=== PATIENT | female | born 1975 | race Caucasian/White ===

== ENCOUNTER → 2016-09-24 | Outpatient (CLI) | payer OTHER ==
--- NOTE | 2016-09-24 12:53 | DIAGNOSTIC IMAGING REPORT ---
PROCEDURE: MG BILATERAL SCREENING W/CAD INDICATION: Screening. Family history breast carcinoma (great aunt). TECHNIQUE: Bilateral CC and MLO digital views. COMPARISON: Compared to [facility] 10/12/2011. FINDINGS: Computer-aided detection applied. Moderately dense. No change. IMPRESSION: 1. Negative mammogram RESULT CODE: 1- Negative. A. A negative report should not delay biopsy if a dominant or clinically suspicious mass is present. 10-15% of cancers are not identified by x-ray. B. A negative report may reinforce clinical impression. C. Adenosis and dense breasts may obscure an underlying neoplasm. D. False positive reports average 6-10%. E.. A yearly screening mammogram is recommended. A reminder letter will be scheduled.
== END ==
LOC: MAM SRH 08:50
DX: Z12.31 Encounter for screening mammogram for malignant neoplasm of breast (principal)

== ENCOUNTER 2017-01-30 09:02 | Emergency (ER) | payer OTHER ==
--- NOTE | 2017-01-30 11:35 | ED CLINICAL REPORT ---
Clinical Report - Physicians/Mid Levels [facility] [address] [place] [address] 01/30/2017 9:04 Patient: MARCUS MANRIQUE Time Seen: 09:30. Arrived- By private vehicle. Historian- patient. HISTORY OF PRESENT ILLNESS Chief Complaint: VOMITING. This started today and is still present. It was abrupt in onset and has been intermittent. The patient has had nausea and vomiting. No black stools, bloody stools, abdominal pain, history of possible bad food exposure or known contact with a sick individual. Has not recently been camping or on antibiotics. The illness is described as severe. Similar symptoms previously: Several times. Diagnosis: (migraine headaches). REVIEW OF SYSTEMS Last normal menstrual period was 4 weeks ago. No chills, fever, sweats, calf pain or chest pain. No cough, difficulty breathing, pedal edema, black stools or bloody stools. No urinary problems. The patient has had a severe headache (- gone now). The headache has been similar to previous ones. The patient has a history of migraine headaches. All systems otherwise negative, except as recorded above. PAST HISTORY PCP - Isaura Jovel. SOCIAL HISTORY Current every day heavy tobacco smoker (cigarette)- 1 pack per day. Occasional alcohol use. History of occasional drug use: marijuana. FAMILY HISTORY Denies family medical history. ADDITIONAL NOTES The nursing notes have been reviewed. PHYSICAL EXAM Vital Signs: 01/30/2017 09:20 BP: 147/78. HR: 70. RR: 16. O2 saturation: 96%. Temp: 97.7 F. Pain level now: 4/10. Have been reviewed. Appearance: Alert. Eyes: Pupils equal, round and reactive to light. ENT: Pharynx normal. Neck: Normal inspection. Neck supple. CVS: Normal heart rate and rhythm. Heart sounds normal. Respiratory: No respiratory distress. Breath sounds normal. Abdomen: Soft and nontender. Bowel sounds normal. No organomegaly. No mass. Obese. Back: Normal inspection. Skin: Skin warm and dry. Normal skin color. Normal skin turgor. Extremities: Extremities exhibit normal ROM. No calf tenderness. No lower extremity edema. LABS, X-RAYS, AND EKG Laboratory Tests: UA-Culture if indicated: (NANDO: 01/30/2017 10:10) ( [facility] 01/30/2017 10:35) Final results Test Result Flag Units (Reference) URINE COLOR YELLOW URINE APPEARANCE CLEAR URINE GLUCOSE NEGATIVE (NEGATIVE) URINE BILIRUBIN NEGATIVE (NEGATIVE) URINE KETONE NEGATIVE (NEGATIVE) URINE SPECIFIC GRAVITY 1.025 (1.010-1.030) URINE PH 5.5 (5.0-8.0) URINE PROTEIN NEGATIVE (NEGATIVE) URINE UROBILINOGEN 0.2 EU/dL (0.2-1.0) URINE NITRITE NEGATIVE (NEGATIVE) URINE BLOOD 1+ (NEGATIVE) URINE LEUK ESTERASE NEGATIVE (NEGATIVE) URINE RBC 3-5 rbc/hpf (0-1) URINE WBC 3-5 wbc/hpf (0-1) URINE EPITHELIAL CELLS 1-3 EPI/hpf (0-5) URINE BACTERIA MODERATE (2+ TO 3+) (NONE SEEN) URINE COMMENT CULTURE INDICATED URINE CULTURES ARE SET-UP BASED ON THE FOLLOWING CRITERIA:POSITIVE NITRITEPOSITIVE LEUKOCYTE ESTERASEGREATER THAN 10 WHITE BLOOD CELLSMODERATE (2+) OR GREATER BACTERIA Urine: (NANDO: 01/30/2017 10:10) ( [facility] 01/30/2017 10:23) Final results Test Result Flag Units (Reference) URINE NEGATIVE CBC w Diff: (NANDO: 01/30/2017 09:56) ( [facility] 01/30/2017 10:11) Final results Test Result Flag Units (Reference) WHITE BLOOD COUNT 8.4 K/uL (4.5-11.5) RED BLOOD COUNT 4.62 M/uL (4.00-5.20) HEMOGLOBIN 14.4 gm/dL (12.0-16.0) HEMATOCRIT 42.4 % (36.0-46.0) MEAN CELL VOLUME 92 fL (80-100) MEAN CORPUSCULAR HGB 31 pg (26-34) MEAN CORPUSCULAR HGB CONC 34 g/dL (31-37) RED CELL DISTRIBUTION WIDTH 13.0 % (11.6-14.8) PLATELET COUNT 278 K/uL (150-400) NEUTROPHIL % 70.3 % (50-75) LYMPH % 22.2 L % (25-40) MONO % 6.3 % (3-14) EOSINOPHIL % 0.9 % (0-4) BASOPHIL % 0.3 % (0-2) CMP: (NANDO: 01/30/2017 09:56) ( MsgRcvd 01/30/2017 10:26) Final results Test Result Flag Units (Reference) GLUCOSE 107 mg/dL (70-110) BUN 13 mg/dL (7-18) CREATININE 0.7 mg/dL (0.6-1.3) Estimated GFR >60 mL/min Estimated GFR- >60 mL/min Note: Persistent reduction over 3 months in eGFR<60 mL/min/1.73 m2 defines CKD. Patients with eGFR values>=60 mL/min/1.73 m2 may also have CKD if evidence ofpersistent proteinuria. Additional information may be foundat www.kidney.org. SODIUM 142 mmol/L (136-145) POTASSIUM 3.9 mmol/L (3.5-5.1) CHLORIDE 106 mmol/L (98-107) CARBON DIOXIDE 27 mmol/L (21-32) CALCIUM 8.2 L mg/dL (8.5-10.1) mg/dL TOTAL PROTEIN 6.3 L g/dL (6.4-8.2) ALBUMIN 3.4 g/dL (3.3-5.0) BILIRUBIN, TOTAL 0.4 mg/dL (0.0-1.0) ALKALINE PHOSPHATASE 57 U/L (46-116) AST (SGOT) 14 L U/L (15-37) ALT (SGPT) 27 U/L (12-78) LIPASE 117 U/L (73-393) AMYLASE 29 U/L (25-115) . CLINICAL IMPRESSION Vomiting. Acute migraine headache. INSTRUCTIONS Rest. Do not work today. Drink plenty of fluids. Warnings: Further evaluation is necessary. Prescription Medications: Zofran 4 mg: Take 1 orally every six hours as needed for nausea/vomiting. Dispense ten (10). No refills. Substitution is permissible. Follow-up: Follow up with your doctor Wednesday in two days. Call for the next available appointment. Understanding of the discharge instructions verbalized by patient. (Electronically signed by Jigar Cheney MD 01/30/2017 11:48)
--- NOTE | 2017-01-30 11:35 | ED NURSING NOTES ---
Clinical Report - Nurses [facility] [address] [place] [address] 01/30/2017 9:04 Patient: MARCUS MANRIQUE TRIAGE Triage time 09:Jan 30 2017. Acuity: LEVEL 4. Chief Complaint: HEADACHE and VOMITING. Alert. No acute distress. --09:28 Te Holden R.N. 09:20 01/30/17. BP: 147/78. HR: 70. RR: 16. O2 saturation: 96% on room air. Temp: 97.7 F. Pain level now: 10/26. --09:28 Te Holden R.N. Acuity: LEVEL 3. --10:45 Wendy Resendiz R.N. Weight: 122.4 kg stated. Height/Length: 65 inches Per Patient. BMI: 45. --09:20 Te Holden R.N. Medications Lisinopril-Hydrochlorothiazide Oral. --09:22 Te Holden R.N. Antidepressant. --09:22 Te Holden R.N. Ibuprofen. --09:22 Te Holden R.N. Water Pill. --09:22 Te Holden R.N. INHALER . --09:28 Te Holden R.N. Allergies No Known Drug Allergy. --09:21 Te Holden R.N. History This started today. She has had nausea and vomiting. 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 PAST MEDICAL HX: Immunizations: up-to-date. SOCIAL HX: Heavy tobacco smoker- 1 pack per day. Occasional alcohol use. History of drug use: marijuana. (last use last night). No recent travel. No infectious disease exposure. No known contact with a sick individual. ABUSE ASSESSMENT: No report of abuse. SELF HARM ASSESSMENT: A self harm assessment was performed. The patient answered "no" to the question "Do you have thoughts of harming or killing yourself?". FALL RISK ASSESSMENT: Fall risk assessment completed. No fall risk identified. NUTRITIONAL RISK ASSESSMENT: The nutritional risk assessment revealed no deficiencies. FUNCTIONAL ASSESSMENT: Functional assessment: no impairments noted. LEARNING NEEDS ASSESSMENT: The learning needs assessment revealed no barriers. SKIN INTEGRITY ASSESSMENT: Skin integrity risk assessment completed. No skin integrity risk identified. --09:28 Te Holden R.N. ( Pt reports she awoke this AM with an intense headache and vomiting that persisted until she "threw everything up". Pt has had migraine headaches before and she states her symptoms today feel similar to migraines she has had before.). --09:35 Te Holden R.N. PROBLEMS: Sinusitis. Pharyngitis. Hypertension. Depression. --09:22 Te Holden R.N. Asthma. --09:28 Te Holden R.N. ADDITIONAL SURGERIES: Tubal Ligation. --09:23 Te Holden R.N. Interventions ID band on patient. To treatment room. --09:28 Te Holden R.N. PHYSICAL ASSESSMENT Ambulatory to room. GENERAL / NEURO / PSYCH: Alert. Oriented X 4. Appears in distress. Speech within normal limits. HEENT: Photophobia present. RESPIRATORY: Respirations not labored. Wheezes and rhonchi right mid-lung anteriorly and upper lung anteriorly; wheezes left mid-lung anteriorly and upper lung anteriorly. GI / : Abdomen soft and nontender. SKIN: Skin is warm and dry. --09:30 Te Holden R.N. NURSING PROGRESS NOTES The plan of care for this patient has been created. Patient gowned. Head of bed elevated. Reassurance given. Lights dimmed. Two patient identifiers checked. Call light placed in reach. Side rails up x 2. Bed placed in lowest position. Brakes of chair on. Patient ready for evaluation- chart flagged. --09:31 Te Holden R.N. 09:59 01/30/2017 Site #1 started via IV in the left antecubital space with an 20g angiocath, with aseptic technique and good blood return; one attempt. Blood drawn: rainbow set. Labeled in the presence of the patient and sent to the lab. Saline lock flushed with 10 mL saline. --09:59 Te Holden R.N. 10:02 01/30/2017 Zofran (Ondansetron HCl) IVP 4 mg given over 2 minute(s) via site #1. Allergies verified and confirmed 5 rights. IV patency established. IV site checked: no pain, redness, or swelling. IV flushed thoroughly pre- and post-medication administration. IVP given by RN. --10:02 Te Holden R.N. 10:14 01/30/2017 Started bag #1 1000 mL IV Fluids IV NS (Saline); bolus of 500 mL over 1 hour(s) via site #1 via IV pump. Allergies verified and confirmed 5 rights. IV patency established. IV site checked: no pain, redness, or swelling. IV flushed thoroughly pre- and post-medication administration. Completed per protocol. --10:14 Te Holden R.N. Patient ID band checked for patient name and birthdate: patient confirmed. Instructions provided to collect clean catch urine and patient verbalized understanding. Catheterized urine collected with return of yellow-colored urine; sample sent to lab. Specimen labeled in the presence of the patient. ( Pt resting in room, asked for a drink of water but explained that Pt will need to be NPO for now until we can minimize her nausea/vomiting. Pt not actively vomiting, S/O at bedside, states she is feeling better. Monitoring VS.). --10:18 Te Holden R.N. <<STRICKEN ENTRY-- 10:51 01/30/2017 IV Fluids IV NS via IV site #1 Rate Changed: bag #1 increased to 1000 mL/hr. IV patency established. IV site checked: no pain, redness, or swelling. IV flushed thoroughly. Confirmed 5 Rights. --10:51 Te Holden R.N. --END STRIKE>> Change to Details. --10:59 Te Holden R.N. 10:50 01/30/17. BP: 120/50. HR: 59. RR: 18. O2 saturation: 98% on room air. --10:52 Te Holden R.N. 10:55 01/30/17. Pain level now: 0/10. --10:55 Te Holden R.N. ( Pt resting in room, S/O at bedside, Pt states she is feeling much better, reported that MD has been in to see her and discuss findings. [place] was provided to Pt, IVF infusing, no needs voiced.). --10:55 Te Holden R.N. 10:51 01/30/2017 IV Fluids IV NS via IV site #1 Rate Changed: bag #1 increased to 1000 mL/hr. IV patency established. IV site checked: no pain, redness, or swelling. IV flushed thoroughly. Confirmed 5 Rights (Per V.O from MD at Pt's bedside.). --10:59 Te Holden R.N. 11:02 01/30/2017 Zofran IVP Response: no adverse reaction symptoms have improved. --11:02 Te Holden R.N. 11:28 01/30/2017 IV Fluids IV NS Discontinued: bag #1 infused upon discharge. Total amount infused: 1000 mL. IV patency established. IV site checked: no pain, redness, or swelling. IV flushed thoroughly. --11:33 Te Holden R.N. 11:29 01/30/2017 Site #1 removed upon discharge. Bandaid applied. --11:34 Te Holden R.N. DISPOSITION / DISCHARGE 11:24 01/30/17. BP: 117/64 taken on the right arm, while lying. HR: 60. RR: 18. O2 saturation: 98% on room air. Temp: 97.7 F (oral). Pain level now: 0/10. --11:25 Te Holden R.N. Departure time: 11:30 Jan 30 2017. Condition at departure: improved and stable. No learning barriers present. Discharge instructions provided and reviewed with the patient and spouse. Reviewed medication(s) side effects, precautions, dosing and course information. Prescription(s) given to the runstitching machine operator (Zofran Rx). Reviewed referral to a primary care physician for followup (Pt instructed to call for an appointment in 2 days). Activity restrictions (rest) reviewed (Pt instructed not to work today.). Work note given. Patient and runstitching machine operator verbalized understanding. Written instructions provided in Danish. The patient was discharged home and accompanied by runstitching machine operator. She left the Emergency Department ambulatory and via private vehicle. Landscape Technician driving. ( Pt dc'd in stable condition, ambulatory, VSS, reports she is feeling better.). --11:33 Te Holden R.N. 11:32 01/30/17. Pain level now: 0/10. --11:33 Te Holden R.N. Locked/Released at 01/30/2017 11:36 by Te Holden R.N.
--- NOTE | 2017-01-30 11:35 | ED NURSING NOTES ---
Clinical Report - Nurses [facility] [address] [place] [address] 01/30/2017 9:04 Patient: MARCUS MANRIQUE TRIAGE Triage time 09:Jan 30 2017. Acuity: LEVEL 4. Chief Complaint: HEADACHE and VOMITING. Alert. No acute distress. --09:28 Te Holden R.N. 09:20 01/30/17. BP: 147/78. HR: 70. RR: 16. O2 saturation: 96% on room air. Temp: 97.7 F. Pain level now: 10/26. --09:28 Te Holden R.N. Acuity: LEVEL 3. --10:45 Wendy Resendiz R.N. Weight: 122.4 kg stated. Height/Length: 65 inches Per Patient. BMI: 45. --09:20 Te Holden R.N. Medications Lisinopril-Hydrochlorothiazide Oral. --09:22 Te Holden R.N. Antidepressant. --09:22 Te Holden R.N. Ibuprofen. --09:22 Te Holden R.N. Water Pill. --09:22 Te Holden R.N. INHALER . --09:28 Te Holden R.N. Allergies No Known Drug Allergy. --09:21 Te Holden R.N. History This started today. She has had nausea and vomiting. 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 PAST MEDICAL HX: Immunizations: up-to-date. SOCIAL HX: Heavy tobacco smoker- 1 pack per day. Occasional alcohol use. History of drug use: marijuana. (last use last night). No recent travel. No infectious disease exposure. No known contact with a sick individual. ABUSE ASSESSMENT: No report of abuse. SELF HARM ASSESSMENT: A self harm assessment was performed. The patient answered "no" to the question "Do you have thoughts of harming or killing yourself?". FALL RISK ASSESSMENT: Fall risk assessment completed. No fall risk identified. NUTRITIONAL RISK ASSESSMENT: The nutritional risk assessment revealed no deficiencies. FUNCTIONAL ASSESSMENT: Functional assessment: no impairments noted. LEARNING NEEDS ASSESSMENT: The learning needs assessment revealed no barriers. SKIN INTEGRITY ASSESSMENT: Skin integrity risk assessment completed. No skin integrity risk identified. --09:28 Te Holden R.N. ( Pt reports she awoke this AM with an intense headache and vomiting that persisted until she "threw everything up". Pt has had migraine headaches before and she states her symptoms today feel similar to migraines she has had before.). --09:35 Te Holden R.N. PROBLEMS: Sinusitis. Pharyngitis. Hypertension. Depression. --09:22 Te Holden R.N. Asthma. --09:28 Te Holden R.N. ADDITIONAL SURGERIES: Tubal Ligation. --09:23 Te Holden R.N. Interventions ID band on patient. To treatment room. --09:28 Te Holden R.N. PHYSICAL ASSESSMENT Ambulatory to room. GENERAL / NEURO / PSYCH: Alert. Oriented X 4. Appears in distress. Speech within normal limits. HEENT: Photophobia present. RESPIRATORY: Respirations not labored. Wheezes and rhonchi right mid-lung anteriorly and upper lung anteriorly; wheezes left mid-lung anteriorly and upper lung anteriorly. GI / : Abdomen soft and nontender. SKIN: Skin is warm and dry. --09:30 Te Holden R.N. NURSING PROGRESS NOTES The plan of care for this patient has been created. Patient gowned. Head of bed elevated. Reassurance given. Lights dimmed. Two patient identifiers checked. Call light placed in reach. Side rails up x 2. Bed placed in lowest position. Brakes of chair on. Patient ready for evaluation- chart flagged. --09:31 Te Holden R.N. 09:59 01/30/2017 Site #1 started via IV in the left antecubital space with an 20g angiocath, with aseptic technique and good blood return; one attempt. Blood drawn: rainbow set. Labeled in the presence of the patient and sent to the lab. Saline lock flushed with 10 mL saline. --09:59 Te Holden R.N. 10:02 01/30/2017 Zofran (Ondansetron HCl) IVP 4 mg given over 2 minute(s) via site #1. Allergies verified and confirmed 5 rights. IV patency established. IV site checked: no pain, redness, or swelling. IV flushed thoroughly pre- and post-medication administration. IVP given by RN. --10:02 Te Holden R.N. 10:14 01/30/2017 Started bag #1 1000 mL IV Fluids IV NS (Saline); bolus of 500 mL over 1 hour(s) via site #1 via IV pump. Allergies verified and confirmed 5 rights. IV patency established. IV site checked: no pain, redness, or swelling. IV flushed thoroughly pre- and post-medication administration. Completed per protocol. --10:14 Te Holden R.N. Patient ID band checked for patient name and birthdate: patient confirmed. Instructions provided to collect clean catch urine and patient verbalized understanding. Catheterized urine collected with return of yellow-colored urine; sample sent to lab. Specimen labeled in the presence of the patient. ( Pt resting in room, asked for a drink of water but explained that Pt will need to be NPO for now until we can minimize her nausea/vomiting. Pt not actively vomiting, S/O at bedside, states she is feeling better. Monitoring VS.). --10:18 Te Holden R.N. <<STRICKEN ENTRY-- 10:51 01/30/2017 IV Fluids IV NS via IV site #1 Rate Changed: bag #1 increased to 1000 mL/hr. IV patency established. IV site checked: no pain, redness, or swelling. IV flushed thoroughly. Confirmed 5 Rights. --10:51 Te Holden R.N. --END STRIKE>> Change to Details. --10:59 Te Holden R.N. 10:50 01/30/17. BP: 120/50. HR: 59. RR: 18. O2 saturation: 98% on room air. --10:52 Te Holden R.N. 10:55 01/30/17. Pain level now: 0/10. --10:55 Te Holden R.N. ( Pt resting in room, S/O at bedside, Pt states she is feeling much better, reported that MD has been in to see her and discuss findings. [place] was provided to Pt, IVF infusing, no needs voiced.). --10:55 Te Holden R.N. 10:51 01/30/2017 IV Fluids IV NS via IV site #1 Rate Changed: bag #1 increased to 1000 mL/hr. IV patency established. IV site checked: no pain, redness, or swelling. IV flushed thoroughly. Confirmed 5 Rights (Per V.O from MD at Pt's bedside.). --10:59 Te Holden R.N. 11:02 01/30/2017 Zofran IVP Response: no adverse reaction symptoms have improved. --11:02 Te Holden R.N. 11:28 01/30/2017 IV Fluids IV NS Discontinued: bag #1 infused upon discharge. Total amount infused: 1000 mL. IV patency established. IV site checked: no pain, redness, or swelling. IV flushed thoroughly. --11:33 Te Holden R.N. 11:29 01/30/2017 Site #1 removed upon discharge. Bandaid applied. --11:34 Te Holden R.N. DISPOSITION / DISCHARGE 11:24 01/30/17. BP: 117/64 taken on the right arm, while lying. HR: 60. RR: 18. O2 saturation: 98% on room air. Temp: 97.7 F (oral). Pain level now: 0/10. --11:25 Te Holden R.N. Departure time: 11:30 Jan 30 2017. Condition at departure: improved and stable. No learning barriers present. Discharge instructions provided and reviewed with the patient and spouse. Reviewed medication(s) side effects, precautions, dosing and course information. Prescription(s) given to the truck packer (Zofran Rx). Reviewed referral to a primary care physician for followup (Pt instructed to call for an appointment in 2 days). Activity restrictions (rest) reviewed (Pt instructed not to work today.). Work note given. Patient and truck packer verbalized understanding. Written instructions provided in French. The patient was discharged home and accompanied by truck packer. She left the Emergency Department ambulatory and via private vehicle. Steam Meter Reader driving. ( Pt dc'd in stable condition, ambulatory, VSS, reports she is feeling better.). --11:33 Te Holden R.N. 11:32 01/30/17. Pain level now: 0/10. --11:33 Te Holden R.N. Locked/Released at 01/30/2017 11:36 by Te Holden R.N.
--- NOTE | 2017-01-30 11:35 | ED ORDER SUMMARY ---
..... Patient: MARCUS MANRIQUE OrderSheet [facility] VisitID: [id number] [place] [address] 41y, F Registration Date/Time: 01/30/2017 ORDER SHEET Weight: 122.4 kg (stated) Allergies: No Known Drug Allergy GENERAL ORDERS: CBC w Diff Urgent (09:01/30/2017 Julius HERNANDES) (Ack 9:43 NICOLETTEoejosé) (9:58 MCook R.N.) CMP Urgent (:01/30/2017 Julius HERNANDES) (Ack 9:43 NICOLETTEoerner) (9:58 MCook R.N.) UA-Culture if indicated Urgent (:01/30/2017 Julius HERNANDES) (Ack 9:43 NICOLETTEoejosé) (10:13 MCook R.N.) Amylase Urgent (:01/30/2017 Julius HERNANDES) (Ack 9:43 Atul) (9:58 MCook R.N.) Lipase Urgent (09:01/30/2017 Julius HERNANDES) (Ack 9:43 NICOLETTEoetitoner) (9:58 MCook R.N.) Urine Urgent (:01/30/2017 Julius HERNANDES) (Ack 9:43 Atul) (10:13 MCook R.N.) MEDICATION ORDERS: IV FLUIDS: IV NS : initial bolus 500 mL (1000 mL/hr), then 125 mL/hr for 4h (NOW); Urgent (09:01/30/2017 Julius HERNANDES) (10:14 MCook R.N.) Zofran IV 4 mg (NOW) (09:42 01/30/2017 Julius HERNANDES) (10:02 MCook R.N.) ORDER SHEET NOTES: [Electronically signed by Te Holden R.N. (11:36 01/30/2017)] [Electronically signed by Jigar Cheney MD (11:48 01/30/2017)] [Electronically locked/signed by Te Holden R.N. (11:36 01/30/2017)]
--- NOTE | 2017-01-30 11:35 | ED ORDER SUMMARY ---
..... Patient: MARCUS MANRIQUE OrderSheet [facility] VisitID: [id number] [place] [address] 41y, F Registration Date/Time: 01/30/2017 ORDER SHEET Weight: 122.4 kg (stated) Allergies: No Known Drug Allergy GENERAL ORDERS: CBC w Diff Urgent (09:01/30/2017 Julius HERNANDES) (Ack 9:43 NICOLETTEoejosé) (9:58 MCook R.N.) CMP Urgent (:01/30/2017 Julius HERNANDES) (Ack 9:43 NICOLETTEoerner) (9:58 MCook R.N.) UA-Culture if indicated Urgent (:01/30/2017 Julius HERNANDES) (Ack 9:43 NICOLETTEoejosé) (10:13 MCook R.N.) Amylase Urgent (:01/30/2017 Julius HERNANDES) (Ack 9:43 Atul) (9:58 MCook R.N.) Lipase Urgent (09:01/30/2017 Julius HERNANDES) (Ack 9:43 NICOLETTEoetitoner) (9:58 MCook R.N.) Urine Urgent (:01/30/2017 Julius HERNANDES) (Ack 9:43 Atul) (10:13 MCook R.N.) MEDICATION ORDERS: IV FLUIDS: IV NS : initial bolus 500 mL (1000 mL/hr), then 125 mL/hr for 4h (NOW); Urgent (09:01/30/2017 Julius HERNANDES) (10:14 MCook R.N.) Zofran IV 4 mg (NOW) (09:42 01/30/2017 Julius HERNANDES) (10:02 MCook R.N.) ORDER SHEET NOTES: [Electronically signed by Te Holden R.N. (11:36 01/30/2017)] [Electronically signed by Jigar Cheney MD (11:48 01/30/2017)] [Electronically locked/signed by Te Holden R.N. (11:36 01/30/2017)]
--- NOTE | 2017-01-30 11:48 | ED MAR SUMMARY ---
..... Medication Administration Record [facility] [address] [place] [address] Patient: MARCUS MANRIQUE Visit ID: [id number] 41y, F Weight: 122.4 kg Height/Length: 65 in BMI: 45 ALLERGIES: No Known Drug Allergy Given 10:02 01/30/2017 Te Holden R.N. Medication Administered: ZOFRAN [IVP] (ONDANSETRON HCL), Dose: 4 mg IVP over 2 minute(s), Site: #1 left AC. Medication Ordered: Zofran IV 4 mg (NOW). Start 10:14 01/30/2017 Te Holden R.N., Stop 11:28 01/30/2017 Te Holden R.N. Medication Administered: IV NS (SALINE), Dose: IV Fluids, Bolus: 500 mL over 1 hour(s), Dispensed: 1000 mL bag, Site: #1 left AC. Medication Ordered: IV NS : initial bolus 500 mL (1000 mL/hr), then 125 mL/hr for 4h (NOW); Urgent.
--- NOTE | 2017-01-30 11:48 | ED MAR SUMMARY ---
..... Medication Administration Record [facility] [address] [place] [address] Patient: MARCUS MANRIQUE Visit ID: [id number] 41y, F Weight: 122.4 kg Height/Length: 65 in BMI: 45 ALLERGIES: No Known Drug Allergy Given 10:02 01/30/2017 Te Holden R.N. Medication Administered: ZOFRAN [IVP] (ONDANSETRON HCL), Dose: 4 mg IVP over 2 minute(s), Site: #1 left AC. Medication Ordered: Zofran IV 4 mg (NOW). Start 10:14 01/30/2017 Te Holden R.N., Stop 11:28 01/30/2017 Te Holden R.N. Medication Administered: IV NS (SALINE), Dose: IV Fluids, Bolus: 500 mL over 1 hour(s), Dispensed: 1000 mL bag, Site: #1 left AC. Medication Ordered: IV NS : initial bolus 500 mL (1000 mL/hr), then 125 mL/hr for 4h (NOW); Urgent.
--- NOTE | 2017-01-30 11:48 | ED MED RECONCILIATION SUMMARY ---
Patient: MARCUS MANRIQUE Medication Reconciliation Report [facility] VisitID: [id number] [address] [place] [address] 41y, F Registration Date/Time: 01/30/2017 Weight: 122.4 kg Height/Length: 65 in. BMI: 45.0 ALLERGIES: No Known Drug Allergy The patient's Home Medications are listed below: THE FOLLOWING MEDICATIONS NEED TO BE RECONCILED: Antidepressant Ibuprofen INHALER Lisinopril-Hydrochlorothiazide Oral Water Pill The source(s) of the original Home Medication information: Not obtained. The following Medications were given to the patient in the Emergency Department: Zofran [IVP] IVP 4 mg, administered: 01/30/2017 10:02:00 AM IV NS IV Fluids bolus 500 mL over 1 hour(s), administered: 01/30/2017 10:14:00 AM The following Medications were prescribed to the patient: Zofran 4 mg: Take 1 orally every six hours as needed for nausea/vomiting. Dispense ten (10). No refills. Substitution is permissible. -- Jigar Cheney MD
--- NOTE | 2017-01-30 11:48 | ED DISCHARGE INSTRUCTIONS ---
Patient: MARCUS MANRIQUE General Instructions [facility] VisitID: [id number] [place] [address] 41y, F Registration Date/Time: 01/30/2017 Vomiting. Acute migraine headache. INSTRUCTIONS Rest. Do not work today. Drink plenty of fluids. Warnings: Further evaluation is necessary. Prescription Medications: Zofran 4 mg: Take 1 orally every six hours as needed for nausea/vomiting. Dispense ten (10). No refills. Substitution is permissible. Follow-up: Follow up with your doctor Wednesday in two days. Call for the next available appointment. Understanding of the discharge instructions verbalized by patient. ADDITIONAL INFORMATION Vomiting [6Yr-Adult] Vomiting is a common symptom that may be due to different causes. These include gastroenteritis ("stomach flu"), food poisoning and gastritis. There are other more serious causes of vomiting which may be hard to diagnose early in the illness. Therefore, it is important to watch for the warning signs listed below. The main danger from repeated vomiting is dehydration. This is due to excess loss of water and minerals from the body. When this occurs, body fluids must be replaced. Home Care: If symptoms are severe, rest at home for the next 24 hours. You may use acetaminophen (Tylenol) or ibuprofen (Motrin, Advil) to control fever, unless another medicine was prescribed. [NOTE : If you have chronic liver or kidney disease or ever had a stomach ulcer or GI bleeding, talk with your doctor before using these medicines.] (Aspirin should never be used in anyone under 18 years of age who is ill with a fever. It may cause severe liver damage.) Avoid tobacco and alcohol use, which may worsen your symptoms. If medicines for vomiting were prescribed, take as directed. Once vomiting stops, then follow these guidelines: During The First 12-24 Hours follow the diet below: FRUIT JUICES: Apple, grape juice, clear fruit drinks, and electrolyte replacement drinks. BEVERAGES: Soft drinks without caffeine; mineral water (plain or flavored), decaffeinated tea and coffee. SOUPS: Clear broth, consomm and bouillon DESSERTS: Plain gelatin, popsicles and fruit juice bars. As you feel better, you may add 6-8 ounces of yogurt per day. During The Next 24 Hours you may add the following to the above: Hot cereal, plain toast, bread, rolls, crackers Plain noodles, rice, mashed potatoes, chicken noodle or rice soup Unsweetened canned fruit (avoid pineapple), bananas Limit caffeine and chocolate. No spices or seasonings except salt. During The Next 24 Hours Gradually resume a normal diet, as you feel better and your symptoms lessen. Follow Up with your doctor as advised if you are not improving over the next 2-3 days. Get Prompt Medical Attention if any of the following occur: Constant right-sided lower abdominal pain or increasing general abdominal pain Continued vomiting (unable to keep liquids down) for 24 hours Frequent diarrhea (more than 5 times a day); blood (red or black color) or mucus in diarrhea Reduced urine output or extreme thirst Weakness, dizziness or fainting Unusually drowsy or confused Fever of 100.4F (38C) oral or higher, not better with fever medication Yellow color of the eyes or skin Migraine Headache Migraine headaches are related to changes in blood flow to the brain. This causes throbbing or constant pain on one or both sides of the head. The pain may last from a few hours to several days. There is usually nausea, vomiting, sensitivity to light and sound, and blurred vision. A migraine attack may be triggered by emotional stress, hormone changes during the menstrual cycle, oral contraceptives, alcohol use, certain foods containing tyramine, eye strain, weather changes, missing meals, or too little or too much sleep. Home Care For This Headache: 1) If you were given pain medicine for this headache, do not drive yourself home . Arrange for a ride, instead. When you get home, try to sleep. You should feel much better when you wake up. 2) Migraine headaches may improve with an ice pack on the forehead or at the base of the skull. Heat to the back of your neck may relieve any neck spasm. 3) Drink only clear liquids or eat a very light diet to avoid nausea/vomiting until symptoms improve. Preventing Future Headaches: 1) Pay attention to those factors that seem to trigger your headache. Try to avoid them when you can. If you have frequent headaches, it is useful to keep a diary of what you were doing, feeling or eating in the hours before each attack. Show this to your doctor to help find the cause of your headaches. a) If you feel that stress is a factor in your headaches, look at the sources of stress in your life. Find ways to release the build-up of those stresses by using regular exercise, relaxation methods (yoga, meditation), bio-feedback or simply taking time-out for yourself. For more information about this, consult your doctor or go to a local bookstore and review books and tapes on this subject. b) Tyramine is a substance present in the following foods : chocolate, yogurt, all cheeses except cottage cheese and cream cheese. smoked or pickled fish and meat (including farr, caviar, bologna, pepperoni, salami), liver, avocados, bananas, figs, raisins, and red wine. Be aware that these foods may trigger a migraine in some persons. Try taking these foods out of your diet for 1-2 months to see if this reduces headache frequency. Treating Future Attacks: 1) At the first sign of a headache, take time out if possible. Find a quiet, dark, comfortable place to sit or lie down. Let yourself relax or sleep. 2) An ice pack on the forehead or area of greatest pain may help. If you are having muscle spasm and tightness of the neck, a heating pad and massage to this area may be helpful. 3) If you have been prescribed a medicine to stop a migraine headache, use this at the very first warning sign of the headache (aura or initial pain) for best results. Follow Up with your doctor if the headache is not better within the next 24 hours. If you have frequent headaches you should discuss a treatment plan with your primary care doctor. Ask if you can have medicine to take at home the next time you get a bad headache. Poorly controlled chronic headaches may require a referral to a neurologist (headache specialist). Get Prompt Medical Attention if any of the following occur: Your head pain gets worse, or does not improve within 24 hours Repeated vomiting (cant keep liquids down) Sinus or ear or throat pain (not already reported) Fever of 100.4 F (38 C) or higher, or as directed by your healthcare provider Stiff neck Extreme drowsiness, confusion or fainting Dizziness, vertigo (dizziness with spinning sensation) Weakness of an arm or leg or one side of the face Difficulty with speech or vision Ondansetron Oral disintegrating tablet What is this medicine? ONDANSETRON (on LIYAH se mirlande) is used to treat nausea and vomiting caused by chemotherapy. It is also used to prevent or treat nausea and vomiting after surgery. How should I use this medicine? These tablets are made to dissolve in the mouth. Do not try to push the tablet through the foil backing. With dry hands, peel away the foil backing and gently remove the tablet. Place the tablet in the mouth and allow it to dissolve, then swallow. While you may take these tablets with water, it is not necessary to do so. Talk to your bowling floor manager regarding the use of this medicine in children. Special care may be needed. What side effects may I notice from receiving this medicine? Side effects that you should report to your doctor or health residential child care counselor as soon as possible: allergic reactions like skin rash, itching or hives, swelling of the face, lips, or tongue breathing problems dizziness fast or irregular heartbeat feeling faint or lightheaded, falls fever and chills swelling of the hands and feet tightness in the chest Side effects that usually do not require medical attention (report to your doctor or health residential child care counselor if they continue or are bothersome): constipation or diarrhea headache What may interact with this medicine? Do not take this medicine with any of the following medications: -apomorphine -cisapride -dofetilide -dronedarone -pimozide -thioridazine -ziprasidone This medicine may also interact with the following medications: -carbamazepine -phenytoin -rifampicin -tramadol -other medicines that prolong the QT interval (cause an abnormal heart rhythm) What if I miss a dose? If you miss a dose, take it as soon as you can. If it is almost time for your next dose, take only that dose. Do not take double or extra doses. Where should I keep my medicine? Keep out of the reach of children. Store between 2 and 30 degrees C (36 and 86 degrees F). Throw away any unused medicine after the expiration date. What should I tell my health care provider before I take this medicine? They need to know if you have any of these conditions: heart disease history of irregular heartbeat liver disease low levels of magnesium or potassium in the blood an unusual or allergic reaction to ondansetron, granisetron, other medicines, foods, dyes, or preservatives or trying to get breast-feeding What should I watch for while using this medicine? Check with your doctor or health residential child care counselor as soon as you can if you have any sign of an allergic reaction. You have been given the following additional information: Vomiting (6Y-Adult) Headache, Migraine (Classical) Ondansetron Oral disintegrating tablet Rest. Do not work today. (Electronically signed by Jigar Cheney MD 01/30/2017 11:48)
--- NOTE | 2017-01-30 11:48 | ED MED RECONCILIATION SUMMARY ---
Patient: MARCUS MANRIQUE Medication Reconciliation Report [facility] VisitID: [id number] [address] [place] [address] 41y, F Registration Date/Time: 01/30/2017 Weight: 122.4 kg Height/Length: 65 in. BMI: 45.0 ALLERGIES: No Known Drug Allergy The patient's Home Medications are listed below: THE FOLLOWING MEDICATIONS NEED TO BE RECONCILED: Antidepressant Ibuprofen INHALER Lisinopril-Hydrochlorothiazide Oral Water Pill The source(s) of the original Home Medication information: Not obtained. The following Medications were given to the patient in the Emergency Department: Zofran [IVP] IVP 4 mg, administered: 01/30/2017 10:02:00 AM IV NS IV Fluids bolus 500 mL over 1 hour(s), administered: 01/30/2017 10:14:00 AM The following Medications were prescribed to the patient: Zofran 4 mg: Take 1 orally every six hours as needed for nausea/vomiting. Dispense ten (10). No refills. Substitution is permissible. -- Jigar Cheney MD
== END 2017-01-30 11:30 | disposition home or self-care (01) ==
LOC: ED SRH 09:02
DX: G43.909 Migraine, unspecified, not intractable, without status migrainosus (principal); R11.2 Nausea with vomiting, unspecified; I10 Essential (primary) hypertension; J45.909 Unspecified asthma, uncomplicated; Z79.899 Other long term (current) drug therapy; F17.210 Nicotine dependence, cigarettes, uncomplicated
CPT/HCPCS: 90004; 90100; 90469; 92235; 92530; 93070; 95059